=== PATIENT | female | born 1985 | race Caucasian/White ===

== ENCOUNTER 2019-02-16 18:01 | Emergency (ER) | payer MEDICAID, SELFPAY ==
[2019-02-16 18:07] VITALS: BP 120/82; PULSE 87; RESP 14; TEMP 36.9
--- NOTE | 2019-02-16 18:08 | W.ED.GENAD ---
Discharge Plan Disposition Patient Disposition: HOME Condition: Fair Discharge Details Chief Complaint: Sorethroat Clinical Impression: Acute pharyngitis Primary Care Provider: Eric Ackerman ED Provider: Diana Brenner Home Meds and New Rx's Prescriptions: No Action levothyroxine 100 mcg Tablet 100 mcg PO DAILY RF: 0 Discharge Instructions Instructions: Pharyngitis (ED) Additional Instructions: Rapid strep testing was negative today. Please continue to encourage hydration. Tylenol and ibuprofen as needed for discomfort. Contact you with any positive results that are pending. Please follow-up with primary care next week if you are not improving. If you develop fever/chills, difficulty swallowing, inability stay hydrated or other new/worsening symptoms please seek care urgently once again. Referrals: Eric Ackerman [Primary Care Provider] - Medical Decision Making Patient is a 33-year-old male presenting today with chief complaint of sore throat. She reports that symptoms began approximately 1 week ago. Is also endorsing bilateral otalgia. Denies any cough. States that she has pain in particular when eating food. Has been trying to hydrate. On exam, patient appears nontoxic, vital signs with limits. Posterior oropharynx is mildly erythematous with bilateral tonsillar swelling and scant amount of white exudate on the right tonsil. Exam is otherwise benign. Rapid strep test negative, UPT negative. Patient not have any trismus, voice was normal, no swelling of the tongue. Advised likely viral. Encourage hydration. We will contact her with any positive results from reflex lab testing. We discussed new/worsening symptoms and when to seek care urgently once again. Otherwise, advised to follow-up with primary care next week if not improving HPI General Mode of arrival: ambulatory. Date/Time Provider Initiated Documentation: 02/16/19 18:08. Limitations to Documentation: no limitations. Information obtained by: patient and RN notes reviewed. History of Present Illness 33 year old F presents to the emergency department with the chief complaint of sore throat, described as moderate, with intensity rated at 8. Quality is described as burning, and is localized to the mouth. Patient reports no radiation. Patient started experiencing this day(s) (6) and it has been constant. No relieving factors improve symptom(s), No exacerbating factors reported . Patient notes loss of appetite (pain with eating) and other (bilateral ear pain); denies chest pain, cough, fever/chills, headaches, nausea/vomiting, rash and shortness of breath. Patient did receive the following treatments prior to arrival, none Related Data Home Medications Medication Instructions Recorded Confirmed levothyroxine 100 mcg PO DAILY 02/16/19 02/16/19 Review of Systems Constitutional Reports as per HPI, Denies chills, Denies fever(s), Denies headache(s), Denies lethargy and Reports poor appetite Eyes Reports as per HPI, Denies eye discharge and Denies irritation ENT Reports as per HPI, Denies ear discharge, Denies otalgia, Denies headache(s), Denies hoarseness, Denies mouth lesions, Reports nasal congestion, Denies nasal discharge, Denies sinus pressure, Reports sore throat, Denies throat swelling and Denies tongue swelling Cardiovascular Reports as per HPI, Denies chest pain and Denies dyspnea Respiratory Reports as per HPI, Denies cough and Denies dyspnea Gastrointestinal Reports as per HPI, Denies abdominal pain, Denies change in bowel habits, Denies nausea and Denies vomiting Integumentary/Breasts Reports as per HPI and Denies rash Neurologic Reports as per HPI and Denies headache(s) Allergic/Immunologic Denies throat swelling and Denies tongue swelling Exam Const General: cooperative, healthy appearing, comfortable, no acute distress, well developed and well groomed Nutritional Appearance: average body habitus and well nourished Orientation: alert and awake [facility] Head: normal to inspection, normocephalic and atraumatic Ears: hearing grossly normal bilaterally, external ears normal and TM's normal bilaterally General nose exam: external nose normal and nares normal Face and sinus: normal facial exam, sinuses nontender and face symmetric Mouth: oral mucosae normal, lip normal, tongue normal, oropharynx normal, moist mucous membranes, no trismus and No restricted motion Teeth and gingiva: dentition normal Throat: uvula midline and abnormal tonsil bilaterally erythema, exudates (small area on right tonsil) and hypertrophy 1+ Eyes General: appearance normal, both eyes and all related structures Neck Neck: normal visual inspection, full ROM, no lymphadenopathy and no meningeal signs Resp Effort & Inspection: normal respiratory effort, able to speak in complete sentences and no respiratory distress Auscultation: clear to auscultation bilaterally, no rales, no rhonchi and no wheezes Cardio Rate: regular rate Rhythm: regular rhythm Heart Sounds: S1 normal and S2 normal Skin General skin exam: no rashes or lesions noted Neuro General: alert and awake Cognition: normal cognition Speech: speech normal Gait: normal gait Psych Appearance: grossly normal and well kempt Mental Status: mental status grossly normal Speech and Movement: speech and movement normal
--- NOTE | 2019-02-16 18:26 | ED.GENADUL_ITS ---
Discharge Plan Disposition Patient Disposition: HOME Condition: Fair Discharge Details Chief Complaint: Sorethroat Clinical Impression: Acute pharyngitis Primary Care Provider: Eric Ackerman ED Provider: Diana Brenner Home Meds and New Rx's Prescriptions: No Action levothyroxine 100 mcg Tablet 100 mcg PO DAILY RF: 0 Discharge Instructions Instructions: Pharyngitis (ED) Additional Instructions: Rapid strep testing was negative today. Please continue to encourage hydration. Tylenol and ibuprofen as needed for discomfort. Contact you with any positive results that are pending. Please follow-up with primary care next week if you are not improving. If you develop fever/chills, difficulty swallowing, inability stay hydrated or other new/worsening symptoms please seek care urgently once again. Referrals: Eric Ackerman [Primary Care Provider] - Medical Decision Making Patient is a 33-year-old male presenting today with chief complaint of sore throat. She reports that symptoms began approximately 1 week ago. Is also endorsing bilateral otalgia. Denies any cough. States that she has pain in particular when eating food. Has been trying to hydrate. On exam, patient appears nontoxic, vital signs with limits. Posterior oropharynx is mildly erythematous with bilateral tonsillar swelling and scant amount of white exudate on the right tonsil. Exam is otherwise benign. Rapid strep test negative, UPT negative. Patient not have any trismus, voice was normal, no swelling of the tongue. Advised likely viral. Encourage hydration. We will contact her with any positive results from reflex lab testing. We discussed new/worsening symptoms and when to seek care urgently once again. Otherwise, advised to follow-up with primary care next week if not improving HPI General Mode of arrival: ambulatory . Date/Time Provider Initiated Documentation: 02/16/19 18:08 . Limitations to Documentation: no limitations . Information obtained by: patient and RN notes reviewed . History of Present Illness 33 year old F presents to the emergency department with the chief complaint of sore throat, described as moderate, with intensity rated at 8. Quality is described as burning, and is localized to the mouth. Patient reports no radiation. Patient started experiencing this day(s) (6) and it has been constant. No relieving factors improve symptom(s), No exacerbating factors reported . Patient notes loss of appetite (pain with eating) and other (bilateral ear pain); denies chest pain, cough, fever/chills, headaches, nausea/vomiting, rash and shortness of breath. Patient did receive the following treatments prior to arrival, none Related Data Home Medications Medication Instructions Recorded Confirmed levothyroxine 100 mcg PO DAILY 02/16/19 02/16/19 Review of Systems Constitutional Reports as per HPI, Denies chills, Denies fever(s), Denies headache(s), Denies lethargy and Reports poor appetite Eyes Reports as per HPI, Denies eye discharge and Denies irritation ENT Reports as per HPI, Denies ear discharge, Denies otalgia, Denies headache(s), Denies hoarseness, Denies mouth lesions, Reports nasal congestion, Denies nasal discharge, Denies sinus pressure, Reports sore throat, Denies throat swelling and Denies tongue swelling Cardiovascular Reports as per HPI, Denies chest pain and Denies dyspnea Respiratory Reports as per HPI, Denies cough and Denies dyspnea Gastrointestinal Reports as per HPI, Denies abdominal pain, Denies change in bowel habits, Denies nausea and Denies vomiting Integumentary/Breasts Reports as per HPI and Denies rash Neurologic Reports as per HPI and Denies headache(s) Allergic/Immunologic Denies throat swelling and Denies tongue swelling Exam Const General: cooperative, healthy appearing, comfortable, no acute distress, well developed and well groomed Nutritional Appearance: average body habitus and well nourished Orientation: alert and awake [facility] Head: normal to inspection, normocephalic and atraumatic Ears: hearing grossly normal bilaterally, external ears normal and TM's normal bilaterally General nose exam: external nose normal and nares normal Face and sinus: normal facial exam, sinuses nontender and face symmetric Mouth: oral mucosae normal, lip normal, tongue normal, oropharynx normal, moist mucous membranes, no trismus and No restricted motion Teeth and gingiva: dentition normal Throat: uvula midline and abnormal tonsil bilaterally erythema, exudates (small area on right tonsil) and hypertrophy 1+ Eyes General: appearance normal, both eyes and all related structures Neck Neck: normal visual inspection, full ROM, no lymphadenopathy and no meningeal signs Resp Effort & Inspection: normal respiratory effort, able to speak in complete sentences and no respiratory distress Auscultation: clear to auscultation bilaterally, no rales, no rhonchi and no wheezes Cardio Rate: regular rate Rhythm: regular rhythm Heart Sounds: S1 normal and S2 normal Skin General skin exam: no rashes or lesions noted Neuro General: alert and awake Cognition: normal cognition Speech: speech normal Gait: normal gait Psych Appearance: grossly normal and well kempt Mental Status: mental status grossly normal Speech and Movement: speech and movement normal
== END 2019-02-16 18:41 | disposition home or self-care (01) ==
PROVIDERS: Emergency Provider Physician Assistant; PCP Specialist/Technologist Athletic Trainer
DX: J02.9 Acute pharyngitis, unspecified (principal)
CPT/HCPCS: 81025; 87880; 99283; 87081

== ENCOUNTER 2019-03-01 08:18 | Emergency (ER) | payer MEDICAID, SELFPAY ==
--- NOTE | 2019-03-01 08:26 | NUR.NOTE ---
Nursing Note: has had sore throat for the past month. was seen here 2 weeks ago and checked for strep which was negative PT has returned because symptoms have persisted and wants a reevaluation
[2019-03-01 08:27] VITALS: BP 129/79; PULSE 120; RESP 18; TEMP 37.7; O2SAT 95
--- NOTE | 2019-03-01 08:45 | W.ED.GENAD ---
Discharge Plan Disposition Patient Disposition: HOME Condition: Stable Discharge Details Chief Complaint: Sorethroat Clinical Impression: Streptococcal sore throat Primary Care Provider: Eric Ackerman ED Provider: Jacob Quiñones Home Meds and New Rx's Prescriptions: New amoxicillin 500 mg capsule 500 mg PO BID Qty: 20 RF: 0 Continued levothyroxine 100 mcg Tablet 100 mcg PO DAILY RF: 0 Discharge Instructions Instructions: Strep Throat (ED) Additional Instructions: Return immediately to the emergency department for any new or significant worsening of symptoms, inability to swallow, difficulty breathing, or further concerns. Otherwise take your antibiotics for the full 10 days. For fever discomfort you may continue to take ibuprofen or acetaminophen. If not improving over the next week please follow-up with your primary care provider for reassessment. Referrals: Eric Ackerman [Primary Care Provider] - 1 week (if not improving follow up for recheck) Discharge Data Discharge Date/Time-TO BE ENTERED AT DEPARTURE: 03/01/19 09:55 Medical Decision Making Patient reports approximately 1 month ago she began having sore throat type symptoms. She was seen here in the emergency department and informed that she should just take Tylenol and her symptoms were improved. Patient does state that her symptoms improved and went away for approximately 1 week and then for the past week her symptoms came back and last night she started having fever chills and return of swollen tonsils with exudates. Patient denies any cough, does state mild nasal congestion without drainage, and mild ear pressure. Physical exam shows bilateral tonsillary hypertrophy, erythema, and exudates otherwise unremarkable HEENT pulmonary exam. Patient is tachycardic and low-grade fever. Plan to recheck strep screen which was negative during previous visit, check mono and CBC.. Review of results show a significant leukocytosis, negative mono, positive strep. Patient placed upon amoxicillin twice daily for 10 days and return precautions were discussed. After discussion of diagnosis and plan of care patient has no further needs, questions, or concerns and states clear understanding to return to the emergency department for any worsening symptoms. HPI General Mode of arrival: ambulatory. Date/Time Provider Initiated Documentation: 03/01/19 08:35. Limitations to Documentation: no limitations. Information obtained by: patient and RN notes reviewed. History of Present Illness 33 year old F presents to the emergency department with the chief complaint of Sore throat, described as moderate and similar to prior episodes, with intensity rated at 5. Quality is described as aching, and is localized to the mouth (Sore throat). Patient started experiencing this month(s) (1) and it has been intermittent. Patient notes no other symptoms.. Patient did receive the following treatments prior to arrival, NSAID Related Data Home Medications Medication Instructions Recorded Confirmed levothyroxine 100 mcg PO DAILY 02/16/19 03/01/19 amoxicillin 500 mg PO BID #20 cap 03/01/19 Previous Rx's Medication Instructions Recorded amoxicillin 500 mg PO BID #20 cap 03/01/19 Allergies Allergy/AdvReac Type Severity Reaction Status Date / Time No Known Allergies Allergy Unverified 03/01/19 09:10 General Stated Complaint: Sorethroat ARMANI: 3 Review of Systems Constitutional Reports chills, Reports fever(s), Denies headache(s) and Reports malaise ENT Reports as per HPI, Denies change in voice, Denies dysphagia, Reports otalgia, Denies headache(s), Denies hoarseness, Denies lip swelling, Denies mouth lesions, Reports nasal congestion, Reports odynophagia, Reports sore throat and Denies throat swelling Cardiovascular Denies chest pain Respiratory Denies chest congestion and Denies cough Gastrointestinal Denies dysphagia and Reports odynophagia Neurologic Denies headache(s) Allergic/Immunologic Denies lip swelling and Denies throat swelling [facility] Social History Smoking/Tobacco Use Status: Never Alcohol Intake: never Drug use: Never Substance use type: does not use Do you feel safe at home: Yes Do you feel safe in your relationship?: Yes Exam Const General: cooperative, healthy appearing, comfortable, no acute distress and not ill appearing Orientation: alert, awake and oriented x3 [facility] Head: normal to inspection and normocephalic Ears: hearing grossly normal bilaterally, external ears normal, TM's normal bilaterally and mastoids normal General nose exam: external nose normal and nares normal Mouth: oral mucosae normal, lip normal, tongue normal, no audible dysphonia, no drooling and no trismus Throat: uvula midline, abnormal tonsil bilaterally erythema, exudates and hypertrophy 2+ and no peritonsillar masses Neck Neck: normal visual inspection, full ROM, no lymphadenopathy and no meningeal signs Resp Effort & Inspection: normal respiratory effort, able to speak in complete sentences and no stridor Auscultation: clear to auscultation bilaterally Cardio Rate: regular rate Rhythm: regular rhythm Heart Sounds: S1 normal and S2 normal Skin General skin exam: no rashes or lesions noted Course Vital Signs Temperature 37.7 C H 03/01/19 08:27 Pulse 120 H 03/01/19 08:27 Respiratory Rate 18 03/01/19 08:27 Blood Pressure 129/79 03/01/19 08:27 Pulse Oximetry 95 03/01/19 08:27 Temperature 37.7 C H 03/01/19 08:27 Temperature Source Skin 03/01/19 08:27 Pulse 120 H 03/01/19 08:27 Respiratory Rate 18 03/01/19 08:27 Blood Pressure 129/79 03/01/19 08:27 Blood Pressure Position Sitting 03/01/19 08:27 Pulse Oximetry 95 03/01/19 08:27 Oxygen Delivery Method Room Air 03/01/19 08:27 Oxygen Flow Rate 0 03/01/19 08:27 Pain Level 5 03/01/19 08:27
[2019-03-01 09:18] LABS: Abs Immature Grans 0.05 k/cumm (0.0-0.09); Absolute Basophil Count 0.02 k/cumm (0.0-0.2); Absolute Lymphocyte Count 1.22 k/cumm (1.2-3.4); Absolute Neutrophil Count 14.62 k/cumm (1.2-6.7); Basophils % 0.1; Eosinophils % 0.2; HCT 37.6 % (36.0-46.0); HGB 11.9 g/dL (12.0-15.5); Immature Grans % 0.3; Lymphocytes % 7.1; Mean Corp. HGB Concentration 31.6 g/dL (32.0-36.0); Mean Corpuscular Hemoglobin 26.3 pg (27.0-33.0); Mean Corpuscular Volume 83.2 fL (80-95); Mean Platelet Volume 10.5 fL (8.0-11.0); Monocytes % 7.1; Neutrophils % 85.2; Platelet Count 262 x1000/uL (130-400); RBC 4.52 m/cumm (4.00-5.20); RBC Distribution Width 14.6 % (11.7-14.6); White Blood Cell Count 17.16 k/cumm (4.4-10.8)
[2019-03-01 09:20] LABS: Absolute Eosinophil Count 0.03 k/cumm (0.0-0.7); Absolute Monocyte Count 1.22 k/cumm (0.11-0.7)
[2019-03-01 09:23] LABS: Mono Screening Negative (Negative)
[2019-03-01 09:59] VITALS: BP 129/79; PULSE 90; RESP 18; TEMP 37.7; O2SAT 95
== END 2019-03-01 09:55 | disposition home or self-care (01) ==
PROVIDERS: Emergency Provider Nurse Practitioner Family; PCP Specialist/Technologist Athletic Trainer
DX: J02.0 Streptococcal pharyngitis (principal)
CPT/HCPCS: 36415; 87880; 99283; 85025; 86308